=== PATIENT | male | born 1965 | race Caucasian/White ===

== ENCOUNTER 2019-12-07 05:45 | Observation (INO) | payer OTHER ==
[~2019-12-07] VITALS: Ht 175.3 cm; Wt 83.9 kg
[2019-12-07 05:55] VITALS: BP_SYST 139
--- NOTE | 2019-12-07 05:55 | NUR ---
Patient to ER bed 7 to gown for evaluation. Side rails up. Report given to SALLY CRUZ/EMMIE CRUZ.
--- NOTE | 2019-12-07 05:55 | NUR ---
Patient is alert and oriented x4 and complains of hiccups and loose black stools since . Patient states he started drinking on monday and his last drink was monday. Patient complains of fatigue, loss of appetite, and stomach and chest pain from the drinking. Patient rates his pain a 4 out of 10. Patient denies nausea, vomiting, SOB, and cough. Patient denies past medical history. No known allergies. No other complaints at this time.
--- NOTE | 2019-12-07 05:59 | NUR ---
KEYLA Hernandez at bedside examining patient.
[2019-12-07] MEDS ORDERED: NACL 0.9% 1,000 ML IV ONE (06:15)
[2019-12-07] MEDS ORDERED: LOPERAMIDE HCL 2 MG CAPSULE PO ONE (06:15)
--- NOTE | 2019-12-07 06:18 | NUR ---
# 20 gauge angiocath placed to LAC. Use of asceptic technique. Opsite placed over site. Blood return noted. Blood for lab drawn from site. Flushed with 10 cc of normal saline. No evidence of infiltration noted. Patient tolerated well.
[2019-12-07 06:31] LABS: BASOPHILS % (AUTO) 0.3 % (0.0-2.0); EOSINOPHILS % (AUTO) 0.2 % (0.0-4.0); HEMATOCRIT 38.5 % (36-54); HEMOGLOBIN 13.4 g/dL (14.0-18.0); LYMPHOCYTES # (AUTO) 1.3 K/uL (1.0-5.5); LYMPHOCYTES % (AUTO) 13.4 % (20.5-51.5); MEAN CORPUSCULAR HEMOGLOBIN 32 pg (27-31); MEAN CORPUSCULAR HGB CONC 35 % (32-36); MEAN CORPUSCULAR VOLUME 91 fL (79.0-98.0); MONOCYTES # (AUTO) 1.1 K/uL (0.0-1.0); MONOCYTES % (AUTO) 10.6 % (1.7-9.3); NEUTROPHILS # (AUTO) 7.6 K/uL (1.8-7.7); NEUTROPHILS % (AUTO) 75.5 % (40.0-70.0); PLATELET COUNT (AUTO) 326 K/uL (130-430); RED BLOOD CELL COUNT(AUTO) 4.22 MIL/uL (4.2-6.2); RED CELL DISTRIBUTION WIDTH 12.9 % (9.0-15.0)
[2019-12-07 06:53] LABS: ANION GAP 11 (5-15); CALCIUM 9.9 mg/dL (8.4-11.0); CHLORIDE 88 mmol/L (98-107); CREATININE 1.05 mg/dL (0.55-1.30); GLUCOSE 146 mg/dL (70-99); SODIUM SERUM 127 mmol/L (136-145); UREA NITROGEN, BLOOD 17 mg/dL (8-21)
[2019-12-07 06:58] LABS: BARBITURATE, URINE NEGATIVE (NEG <=200); BENZODIAZEPINE, URINE NEGATIVE (NEG <=150); CANNABINOID, URINE NEGATIVE (NEG <=50); COCAINE, URINE NEGATIVE (NEG <=150); METHAMPHETAMINES SCREEN,URINE NEGATIVE (NEG <=500); OPIATE, URINE NEGATIVE (NEG <=100); PHENCYCLIDINE SCREEN,URINE NEGATIVE (NEG <=25); UR TRICYCLIC ANTIDEPRESSANTS NEGATIVE (NEG <=300); URINE AMPHETAMINE NEGATIVE (NEG <=500); URINE METHADONE NEGATIVE (NEG <=200); URINE OXYCODONE SCREEN NEGATIVE (NEG <=100); URINE PROPOXYPHENE SCREEN NEGATIVE (NEG <=300)
[2019-12-07 07:02] LABS: ALANINE AMINOTRANSFERASE 129 U/L (12-78); ALBUMIN 3.5 g/dL (3.4-4.8); ASPARTATE AMINOTRANSFERASE 208 U/L (10-37); LIPASE 79 U/L (73-393)
--- NOTE | 2019-12-07 07:05 | NUR ---
Patient's code status is FULL CODE paperwork completed and placed in chart.
--- NOTE | 2019-12-07 07:05 | NUR ---
Medication reconciliation completed with information provided by PATIENT. Any prior medication reconciliation on file was reviewed and corrected.
[2019-12-07 07:07] LABS: POTASSIUM 2.8 mmol/L (3.5-5.1)
[2019-12-07 07:08] LABS: ALCOHOL, BLOOD < 3 mg/dL (<10); GFR AFRICAN AMERICAN 95 mL/min (>90)
--- NOTE | 2019-12-07 07:09 | NUR ---
REPORT GIVEN TO NANCY GRANDA FOR CONTINUATION OF CARE.
--- NOTE | 2019-12-07 07:14 | NUR ---
Spoke with Dr. Maharaj via phone, orders received. Entered by RN. Called for bed assignment. Spoke with charge nurse, she will return call in approximately 10 minutes.
[2019-12-07] MEDS ORDERED: POTASSIUM CHLORIDE 20 MEQ TAB.PRT.SR PO ONE ×2 (07:15→11:45)
[2019-12-07] MEDS ORDERED: THIAMINE HCL 100 MG/ML VIAL IM ONE (07:15)
[2019-12-07] MEDS ORDERED: FOLIC ACID 5 MG/ML VIAL IV ONE (07:15)
[2019-12-07] MEDS ORDERED: LORazepam 2 MG/ML VIAL IVP ONE (07:15)
[2019-12-07] MEDS ORDERED: ASPIRIN 325 MG TABLET (ECOTRIN) PO ONE (07:15)
[2019-12-07] MEDS ORDERED: BANANA BAG 1 EA, FOLIC ACID 1 MG, THIAMINE HCL 100 MG, MAGNESIUM SULFATE 1 GM, MVI 10 M... IV SCH ×5 (08:00)
[2019-12-07] MEDS ORDERED: LORazepam 2 MG/ML VIAL IVP PRN (08:00)
--- NOTE | 2019-12-07 08:02 | NUR ---
Patient will be admitted to care of Dr. Maharaj. Admitted to Telemetry unit. Will go to room 117B. Belongings list completed. Complete and up to date summary report printed. SBAR report to be given at bedside with opportunity for questions.
[2019-12-07 08:10] VITALS: BP_SYST 127
--- NOTE | 2019-12-07 08:10 | NUR ---
Admission: Received from ER with the diagnosis of chest pain, ETOH withdrawal. Patient is oriented x4, denies chest pain. Noted patient is having hiccups. Oriented to room, call light within reach. Plan of care discussed with patient.
--- NOTE | 2019-12-07 08:13 | NUR ---
CONSULTATION PAGED REASON FOR CONSULTATION:CHEST PAIN, ETOH WITHDRAWL WAS CONSULT CALLED?Y PERSON WHO WAS NOTIFIED:JOSE MARTIN CONSULTING PHYSICIAN:TATIANA JACOBS [employer] SPECIALTY:CARDIO [employer] PHONE NUMBER:[phone] REQUESTING PHYSICIAN:VIVIANA MENCHACA
[2019-12-07] MEDS ORDERED: ASPIRIN 325 MG TABLET PO ONE (08:30)
[2019-12-07] MEDS: NACL 0.9% 1,000 ML IV SCH ×3 (08:37→21:10)
[2019-12-07] MEDS ORDERED: chlordiazePOXIDE HCL 25 MG CAPSULE PO ONE (09:00)
[2019-12-07] MEDS: FOLIC ACID 1 MG, MVI 10 ML in NACL 0.9% 1,000 ML IV SCH (10:10)
[2019-12-07] MEDS: THIAMINE HCL 100 MG, MAGNESIUM SULFATE 1 GM in NS 100 ML IV SCH (10:12)
[2019-12-07] MEDS: METOPROLOL TARTRATE 25 MG TABLET PO SCH ×2 (10:25→21:04)
--- NOTE | 2019-12-07 12:12 | NUR ---
Rounds Patient is awake, alert and oriented x4. No resp distress at this time. Patient is noted having hiccups. Patient denies any pain at this time. Safety measures implemented. Call light within reach, bed in lowest position, locked. Will continue to monitor.
--- NOTE | 2019-12-07 16:00 | NUR ---
Rounds Patient is laying in bed, resting. No resp distress noted. Patient denies any pain at this time. Safety measures implemented. Bed in lowest position, locked.
[2019-12-07] MEDS: chlordiazePOXIDE HCL 25 MG CAPSULE PO SCH ×2 (17:47→21:04)
[2019-12-07] MEDS: THORAZINE (chlorproMAZINE) 25 MG TAB PO PRN (17:47)
[2019-12-07 17:49] VITALS: BP_SYST 134
--- NOTE | 2019-12-07 18:47 | NUR ---
Closing Notes Patient is awake, alert and oriented x4. No resp distress noted. Breathing is even and unlabored. Patient denies any pain at this time. Safety and fall precautions in place. Call light within reach. Bed in lowest position, locked. Will endorse to next nurse.
--- NOTE | 2019-12-07 19:15 | NUR ---
CHANGE OF SHIFT; pt. sleeping when received, no acute distress. call light at bedside. IV infusing. will assess later.
[2019-12-07 20:15] VITALS: BP_SYST 138
--- NOTE | 2019-12-07 20:15 | NUR ---
NOTES: pt. awakened for VS and assessment. denies any pain nor discomfort. moves all extremities. IV infusing via left antecubital, been alarming on and off. on electronic device monitor and shows sinus tach HR 109. on room air, no shortness of breath, noted some non productive cough. blood draw for troponin done. kept NPO except meds. pt. ambulates to the restroom. instructed to use call light for help and verbalized understanding.
--- NOTE | 2019-12-07 21:30 | NUR ---
NOTES: due medications given. IV banana bag @ 42 cc/hr and NS @ 150 cc/hr. repositioned self for comfort.
--- NOTE | 2019-12-07 23:02 | NUR ---
NOTES: called Dr. Walsh and informed him Troponin result 0.131, no orders, Trop level trending down.
--- NOTE | 2019-12-07 23:50 | NUR ---
NOTES: another IV site started on left hand with gauge #22, resume IV NS @ 150 cc/hr. pt. needs attended.
[2019-12-08 00:31] VITALS: BP_SYST 106
--- NOTE | 2019-12-08 02:00 | NUR ---
NOTES: made rounds, remain sleeping. condition observed. IVF continuous.
--- NOTE | 2019-12-08 04:00 | NUR ---
NOTES: pt. condition unchanged. been sleeping soundly. call light at bedside.
[2019-12-08] MEDS: NACL 0.9% 1,000 ML IV SCH ×3 (04:36→15:57)
--- NOTE | 2019-12-08 06:00 | NUR ---
NOTES: IV site on antecubital alarming, switch to left hand and piggyback, kept at same rate. pt. voided per urinal. am blood draw done. no complaints.
[2019-12-08 06:23] LABS: BASOPHILS % (AUTO) 0.4 % (0.0-2.0); EOSINOPHILS # (AUTO) 0.1 K/uL (0.0-0.4); EOSINOPHILS % (AUTO) 1.5 % (0.0-4.0); HEMATOCRIT 31.6 % (36-54); HEMOGLOBIN 10.9 g/dL (14.0-18.0); LYMPHOCYTES # (AUTO) 2.5 K/uL (1.0-5.5); LYMPHOCYTES % (AUTO) 27.8 % (20.5-51.5); MEAN CORPUSCULAR HEMOGLOBIN 33 pg (27-31); MEAN CORPUSCULAR HGB CONC 34 % (32-36); MEAN CORPUSCULAR VOLUME 95 fL (79.0-98.0); MONOCYTES # (AUTO) 0.9 K/uL (0.0-1.0); MONOCYTES % (AUTO) 10.1 % (1.7-9.3); NEUTROPHILS # (AUTO) 5.4 K/uL (1.8-7.7); NEUTROPHILS % (AUTO) 60.2 % (40.0-70.0); PLATELET COUNT (AUTO) 290 K/uL (130-430); RED BLOOD CELL COUNT(AUTO) 3.31 MIL/uL (4.2-6.2); RED CELL DISTRIBUTION WIDTH 13.3 % (9.0-15.0); WHITE BLOOD COUNT (AUTO) 9.1 K/uL (4.8-10.8)
--- NOTE | 2019-12-08 06:45 | NUR ---
CLOSING NOTES; pt. resting, already awake, still with hiccups, bron bag gvien and instructed how to use it. IVF continuous. NS and banana bag simultaneously as ordered. no discomfort. for further care and assistance. kept NPO. call light within reach.
[2019-12-08 07:02] LABS: ALBUMIN 2.6 g/dL (3.4-4.8); CALCIUM 7.7 mg/dL (8.4-11.0); CREATININE 0.74 mg/dL (0.55-1.30); POTASSIUM 3.2 mmol/L (3.5-5.1); THYROID STIMULATING HORMONE 1.73 uIu/mL (0.34-4.82)
[2019-12-08 07:48] LABS: TOTAL BILIRUBIN 0.4 mg/dL (0.0-1.0)
[2019-12-08 08:15] VITALS: BP_SYST 127
[2019-12-08] MEDS: METOPROLOL TARTRATE 25 MG TABLET PO SCH ×2 (08:22→20:55)
[2019-12-08] MEDS: ASPIRIN 325 MG TABLET PO SCH (08:22)
[2019-12-08] MEDS: chlordiazePOXIDE HCL 25 MG CAPSULE PO SCH ×3 (08:22→20:55)
[2019-12-08] MEDS: THORAZINE (chlorproMAZINE) 25 MG TAB PO PRN (08:22)
--- NOTE | 2019-12-08 08:26 | NUR ---
AM Rounds: Patient is oriented x4. Medicated with thorazine for hiccups. NO signs of alcohol withdrawal noted. Call light within reach.
[2019-12-08 09:07] LABS: HEPATITIS A AB, IgM Negative (Negative); HEPATITIS B CORE AB, IgM Negative (Negative); HEPATITIS B SURFACE AG Negative (Negative)
[2019-12-08] MEDS: FOLIC ACID 1 MG, MVI 10 ML in NACL 0.9% 1,000 ML IV SCH (10:10)
[2019-12-08] MEDS: THIAMINE HCL 100 MG, MAGNESIUM SULFATE 1 GM in NS 100 ML IV SCH (10:10)
--- NOTE | 2019-12-08 10:30 | NUR ---
ROUNDS: Patient states Hiccups have subsided. No signs of DT's noted.
[2019-12-08 12:24] VITALS: BP_SYST 101
--- NOTE | 2019-12-08 13:30 | NUR ---
Diet tolerance: Started on full liquid diet. Patient claims pain after having a couple of spoon of the soup.
--- NOTE | 2019-12-08 15:00 | NUR ---
MD notification: MD is aware that patient had pain after meal.
--- NOTE | 2019-12-08 15:30 | NUR ---
Education: Educated patient on alcohol cessation Verbalized understanding. Will provide reading articles.
[2019-12-08 16:10] VITALS: BP_SYST 107
--- NOTE | 2019-12-08 18:14 | NUR ---
End of shift: Needs attended. No change in assessment.
--- NOTE | 2019-12-08 19:45 | NUR ---
A/A/OX4.AMBULATORY. DENIES ANY DISCOMFORT @ THIS TIME.DENIES SOB.DENIES CP.NO S/S OF ETOH WITHDRAWAL NOTED.IVF NS @108 ML/HR ,IVF NS WITH ADDITIVES @ 42 ML/HR INFUSING WELL RESPECTIVELY ON HIS LEFT HAND. INSTRUCTED TO USE CALL LIGHT NEEDED;WITH IN REACH.VERBALIZED UNDERSTANDING OF THE INSTRUCTION GIVEN.
[2019-12-08 20:00] VITALS: BP_SYST 143
--- NOTE | 2019-12-08 20:00 | NUR ---
AFEBRILE.BP 143/82 MM HG. TELE SHOWED ST WITH PAC'S.
--- NOTE | 2019-12-08 21:00 | NUR ---
DUE MED ADM.CALL LIGHT WITHIN REACH.
--- NOTE | 2019-12-09 | NUR ---
V/S STABLE. AFEBRILE.TELE SHOWED SR WITH PAC'S.
[2019-12-09 00:09] VITALS: BP_SYST 124
[2019-12-09] MEDS: NACL 0.9% 1,000 ML IV SCH ×2 (00:44→06:33)
--- NOTE | 2019-12-09 02:00 | NUR ---
RESTING COMFORTABLY IN NO ACUTE DISTRESS.IVF INFUSING WELL.
--- NOTE | 2019-12-09 04:00 | NUR ---
ASLEEP IN NO ACUTE DISTRESS.IVF INFUSING WELL.
--- NOTE | 2019-12-09 06:49 | NUR ---
ENDORSED WATCHING TV.DENIES CP OVER 12 HRS.NO S/S OF ETOH WITHDRAWAL NOTED.SAFETY MAINTAINED.
--- NOTE | 2019-12-09 08:00 | NUR ---
INITIAL NOTES Resting in bed, awake and oriented. No shortness of breath on room air. Reported epigastric pain after eating breakfast but is controlled. IVF is infusing well. Ambulates to the restroom independently. Last loose tarry stool was at 2am this morning per patient. Fall and safety checks in place. Call light within reach. Will continue to monitor.
[2019-12-09 08:14] VITALS: BP_SYST 144
[2019-12-09] MEDS: chlordiazePOXIDE HCL 25 MG CAPSULE PO SCH (08:40)
[2019-12-09] MEDS: ASPIRIN 325 MG TABLET PO SCH (08:40)
[2019-12-09] MEDS: METOPROLOL TARTRATE 25 MG TABLET PO SCH (08:41)
[2019-12-09] MEDS: THIAMINE HCL 100 MG, MAGNESIUM SULFATE 1 GM in NS 100 ML IV SCH (08:43)
[2019-12-09] MEDS: FOLIC ACID 1 MG, MVI 10 ML in NACL 0.9% 1,000 ML IV SCH (08:44)
[2019-12-09] MEDS ORDERED: FOLIC ACID 1 MG TABLET PO SCH (09:00)
[2019-12-09] MEDS ORDERED: THIAMINE HCL 100 MG TABLET PO SCH (09:00)
[2019-12-09] MEDS ORDERED: PANTOPRAZOLE SODIUM 40 MG TAB PO ONE (09:45)
--- NOTE | 2019-12-09 09:45 | NUR ---
MD ROUNDS Seen and examined by Dr. Maharaj at bedside. Made aware of patient's current potassium levels.
[2019-12-09 10:16] LABS: BASOPHILS # (AUTO) 0.1 K/uL (0.0-0.2); BASOPHILS % (AUTO) 0.5 % (0.0-2.0); EOSINOPHILS # (AUTO) 0.2 K/uL (0.0-0.4); EOSINOPHILS % (AUTO) 1.8 % (0.0-4.0); HEMATOCRIT 33.2 % (36-54); HEMOGLOBIN 11.3 g/dL (14.0-18.0); MEAN CORPUSCULAR HEMOGLOBIN 32 pg (27-31); MEAN CORPUSCULAR HGB CONC 34 % (32-36); MEAN CORPUSCULAR VOLUME 95 fL (79.0-98.0); MONOCYTES # (AUTO) 1.1 K/uL (0.0-1.0); MONOCYTES % (AUTO) 10.4 % (1.7-9.3); NEUTROPHILS # (AUTO) 6.3 K/uL (1.8-7.7); NEUTROPHILS % (AUTO) 59.3 % (40.0-70.0); PLATELET COUNT (AUTO) 344 K/uL (130-430); RED BLOOD CELL COUNT(AUTO) 3.49 MIL/uL (4.2-6.2); RED CELL DISTRIBUTION WIDTH 13.3 % (9.0-15.0); WHITE BLOOD COUNT (AUTO) 10.6 K/uL (4.8-10.8)
[2019-12-09 10:21] LABS: CREATININE 0.79 mg/dL (0.55-1.30); POTASSIUM 3.2 mmol/L (3.5-5.1)
[2019-12-09 10:26] LABS: ALBUMIN 2.9 g/dL (3.4-4.8); TOTAL BILIRUBIN 0.3 mg/dL (0.0-1.0)
--- NOTE | 2019-12-09 11:00 | NUR ---
PAGED Paged Dr. Maharaj to inform him of latest lad results. Waiting for call back.
--- NOTE | 2019-12-09 12:03 | NUR ---
Dietitian Recommendations *Recommend continue Cardiac - LOCHOL/LOFAT/2g Na diet Please see Nutrition Assessment for details. [facility] Addendum: 12/09/19 at [address] CORRECTIONS: Dietitian Recommendations: * Recommend continue Cardiac -LOCHOL/LOFAT/2g Na diet * Continue Thiamine, MVI [facility]
--- NOTE | 2019-12-09 12:10 | NUR ---
MD PAGED Re-paged Dr. Maharaj to inform him about lab results and possibly get discharge orders as per his progress notes.
[2019-12-09 12:26] VITALS: BP_SYST 115
[2019-12-09] MEDS ORDERED: POTASSIUM CHLORIDE 20 MEQ TAB.PRT.SR PO ONE (13:45)
--- NOTE | 2019-12-09 13:50 | NUR ---
MD HAINES Was able to talk to Dr. Maharaj on the phone. Received orders for potassium replacement and discharge. Patient informed of plan, verbalized understanding.
[2019-12-09 14:19] VITALS: BP_SYST 115
--- NOTE | 2019-12-09 14:54 | NUR ---
SS NOTES/ETOH: [employer] met with patient while getting dressed to go home. Pt stated he has been drinking beer for the last 10 years and admits that he has a problem with alcohol. Pt states he drinks six pack a day and no particular trigger/s to this habit. Pt denies any history of treatment and will look into substance abuse resources that was provided. Pt denies any history of anxiety/depression/mental health. [employer] provided patient with SS phone number for questions along with substance abuse/mental health resources.
[2019-12-10] MEDS ORDERED: PANTOPRAZOLE SODIUM 40 MG TAB PO SCH (09:00)
== END 2019-12-09 15:00 | disposition home or self-care (01) ==
LOC: SED 05:45 → STU 07:40 → INTOOBSV 07:40 → STU 08:00
PROVIDERS: ADMIT Internal Medicine Hospice and Palliative Medicine; ATTEND Internal Medicine Hospice and Palliative Medicine
DX: R07.9 Chest pain, unspecified (principal); R79.89 Other specified abnormal findings of blood chemistry; F10.239 Alcohol dependence with withdrawal, unspecified; I24.8 Other forms of acute ischemic heart disease; E87.6 Hypokalemia; K70.9 Alcoholic liver disease, unspecified; Z87.891 Personal history of nicotine dependence; Z79.899 Other long term (current) drug therapy
CPT/HCPCS: 36415 ×3; 71045; 80053 ×3; 80061; 80074; 80307; 83690 ×2; 83880; 84443; 84484 ×2; 85025 ×3; 93005 ×2; 93306; 96365; 96366 ×2; 96372; 96375; 99285; G0378; G0482; J2060; J3411 ×3; J3475 ×3; J3490 ×3; J7030 ×3; Q0161 ×2; 96361; 96374

== ENCOUNTER 2020-05-02 16:24 | Emergency (ER) | payer OTHER ==
[~2020-05-02] VITALS: Ht 175.3 cm; Wt 83.9 kg
[2020-05-02 16:28] VITALS: BP_SYST 145
[2020-05-02 17:52] LABS: BILIRUBIN,URINE NEGATIVE (NEGATIVE); BLOOD, URINE NEGATIVE (NEGATIVE); COLOR,URINE YELLOW (YELLOW); GLUCOSE,URINE NEGATIVE (NEGATIVE); KETONES,URINE NEGATIVE (NEGATIVE); LEUKOCYTE ESTERASE ,URINE NEGATIVE (NEGATIVE); NITRITE, URINE NEGATIVE (NEGATIVE); PROTEIN URINE NEGATIVE (NEGATIVE); UROBILINOGEN,URINE 0.2 (0.2-1.0)
[2020-05-02 17:53] LABS: CLARITY/URINE SLIGHTLY HAZY (CLEAR)
[2020-05-02 18:05] LABS: BASOPHILS % (AUTO) 0.4 % (0.0-2.0); EOSINOPHILS # (AUTO) 0.2 K/uL (0.0-0.4); EOSINOPHILS % (AUTO) 2.4 % (0.0-4.0); HEMATOCRIT 44.4 % (36-54); HEMOGLOBIN 14.9 g/dL (14.0-18.0); LYMPHOCYTES # (AUTO) 2.5 K/uL (1.0-5.5); LYMPHOCYTES % (AUTO) 31.2 % (20.5-51.5); MEAN CORPUSCULAR HEMOGLOBIN 30 pg (27-31); MEAN CORPUSCULAR HGB CONC 34 % (32-36); MEAN CORPUSCULAR VOLUME 90 fL (79.0-98.0); MONOCYTES # (AUTO) 0.5 K/uL (0.0-1.0); MONOCYTES % (AUTO) 6.3 % (1.7-9.3); NEUTROPHILS # (AUTO) 4.7 K/uL (1.8-7.7); NEUTROPHILS % (AUTO) 59.7 % (40.0-70.0); PLATELET COUNT (AUTO) 399 K/uL (130-430); RED BLOOD CELL COUNT(AUTO) 4.94 MIL/uL (4.2-6.2); RED CELL DISTRIBUTION WIDTH 14.7 % (9.0-15.0); WHITE BLOOD COUNT (AUTO) 7.9 K/uL (4.8-10.8)
[2020-05-02 18:14] LABS: INR 0.9 (0.80-1.20); PROTHROMBIN TIME 9.6 SECS (9.5-12.5)
[2020-05-02 18:28] LABS: ANION GAP 7 (5-15); CALCIUM 8.9 mg/dL (8.4-11.0); CHLORIDE 102 mmol/L (98-107); GLUCOSE 108 mg/dL (70-99); POTASSIUM 3.9 mmol/L (3.5-5.1); SODIUM SERUM 139 mmol/L (136-145); UREA NITROGEN, BLOOD 18 mg/dL (8-21)
[2020-05-02 18:29] LABS: GFR AFRICAN AMERICAN 90 mL/min (>90)
[2020-05-02 18:31] LABS: ALCOHOL, BLOOD < 3 mg/dL (<10)
[2020-05-02 18:33] LABS: ALANINE AMINOTRANSFERASE 30 U/L (12-78); ALBUMIN 4.4 g/dL (3.4-4.8); TOTAL BILIRUBIN 0.2 mg/dL (0.0-1.0)
[2020-05-02 19:04] VITALS: BP_SYST 145
[2020-05-02 19:37] LABS: ASPARTATE AMINOTRANSFERASE 16 U/L (10-37)
== END 2020-05-02 19:04 | disposition home or self-care (01) ==
LOC: SED 16:24
DX: R20.2 Paresthesia of skin (principal)
CPT/HCPCS: 36415; 70450; 72131; 80053; 81003; 83605; 83880; 84484; 85025; 85610; 87040; 93005; 99285; G0482